=== PATIENT | female | born 1975 | race Hispanic/Latino ===

== ENCOUNTER 2020-09-30 20:12 | Emergency (ER) | payer BC, MEDICAID ==
[~2020-09-30] VITALS: Ht 157.5 cm; Wt 75.0 kg
[~2020-09-30 20:12] MED LIST: AMOXICILLIN500 MG PO; AMRIX15 MG PO; AUGMENTIN875TAB PO; AVIDOXY100 MG PO; BACTRIM1 TAB OR; BENADRYL 50MG C50 MG OR; FIORICET PO; FLEXERIL PO; LORTAB 10-325 M1 TAB PO; LORTAB 5 OR; MEDDOSEPAK OR; MELOXICAM15 MG PO; NAPROSYN500 MG PO; NO HOME MEDS; OMEPRAZOLE20 M2 PO; PROTONIX40 M1 OR; PROTONIX40 MG OR; REGLAN5 MG OR; TOBRAMYCIN0.3 % OD; TRAMADOL HYDROC50 MG PO; ULTRAM50 M1 PO; ZPAK PO
[2020-09-30 20:35] LABS: HEMATOCRIT 44.5 % (37.0-47.0); IMMATURE GRANULOCYTES 0.5 % (0.0-5.0); MEAN CELL VOLUME 82.1 fL CALC (80.0-100.0); MEAN CORPUSCULAR HGB 25.8 pG CALC (26.0-32.0); MEAN CORPUSCULAR HGB CONC 31.5 g/dL CAL (32.0-36.0); NEUT# 8.36 thou/uL (2.00-7.15); RED BLOOD COUNT 5.42 mill/uL (4.20-5.60); RED CELL DISTRI WIDTH 15.9 % (11.5-15.5)
[2020-09-30 20:48] LABS: ALBUMIN 4.4 g/dL (3.2-5.0); ALKALINE PHOSPHATASE 92 u/l (38-126); AMYLASE 61 u/l (30-110); ANION GAP 14 (6-22 (CALC)); BILIRUBIN, TOTAL 0.9 mg/dL (0.0-1.4); BUN 14 mg/dL (7-17); BUN/CREATININE RATIO 25 (12-20 (CALC)); CARBON DIOXIDE 20 mmol/l (22-30); CHLORIDE 108 mmol/l (95-108); CREATININE 0.6 mg/dL (0.5-1.0); GFR > 60 ML/MIN (>=60 (CALC)); GFR FOR AFR.AMER. > 60 ML/MIN (>=60 (CALC)); LIPASE 43 u/l (23-300); POTASSIUM 3.9 mmol/l (3.5-5.1); SGOT/AST 110 u/l (14-36); SODIUM 138 mmol/l (137-146)
[2020-09-30 21:51] LABS: URINE BLOOD DIPSTICK NEGATIVE (NEGATIVE); URINE COLOR YELLOW; URINE GLUCOSE - DIPSTICK NEGATIVE (NEGATIVE); URINE KETONE >=80 mg/dL (NEGATIVE); URINE LEUK ESTERASE NEGATIVE (NEGATIVE); URINE PH 5.5 (4.5-8.0); URINE PROTEIN - DIPSTICK TRACE mg/dL (NEG-TRACE); URINE SPECIFIC GRAVITY >=1.030; URINE UROBILINOGEN - DIPSTICK 0.2 E.U./dL (0.2)
[2020-09-30 22:01] LABS: URINE BILIRUBIN - DIPSTICK SMALL (NEGATIVE); URINE NITRITE - DIPSTICK NEGATIVE (Negative)
[2020-09-30] MEDS ORDERED: LOMOTIL2.5 MG PO (23:10)
[2020-09-30] MEDS ORDERED: PHENERGAN25 MG/TAB PO (23:10)
[2020-09-30 23:21] VITALS: BP 96/64
== END 2020-09-30 23:25 | disposition home or self-care (01) | DRG 392 ==
LOC: ED 20:12
PROVIDERS: Family Medicine
DX: A08.4 Viral intestinal infection, unspecified (principal)

== ENCOUNTER 2020-12-16 08:33 | Inpatient (IN) | payer BC, MEDICAID ==
[~2020-12-16] VITALS: Ht 157.5 cm; Wt 70.0 kg
[~2020-12-16 08:33] MED LIST changes: +LOMOTIL2.5 MG PO; +PHENERGAN25 MG/TAB PO
[2020-12-16 09:55] LABS: HCG SERUM/URINE (NEG/POS) NEGATIVE (NEGATIVE)
[2020-12-16 10:05] LABS: ALBUMIN 3.8 g/dL (3.2-5.0); ALKALINE PHOSPHATASE 79 u/l (38-126); BUN 11 mg/dL (7-17); BUN/CREATININE RATIO 20 (12-20 (CALC)); CHLORIDE 103 mmol/l (95-108); CREATININE 0.5 mg/dL (0.5-1.0); GFR > 60 ML/MIN (>=60 (CALC)); GFR FOR AFR.AMER. > 60 ML/MIN (>=60 (CALC)); POTASSIUM 3.6 mmol/l (3.5-5.1); SGOT/AST 70 u/l (14-36); SODIUM 140 mmol/l (137-146); TOTAL PROTEIN 6.8 g/dL (6.3-8.2)
[2020-12-16] MEDS ORDERED: ZITHROMAX250 MG PO (10:09)
--- NOTE | 2020-12-16 10:11 | NUR ---
Reassessment of patient completed. No distress noted.
[2020-12-16 10:12] LABS: ANION GAP 14 (6-22 (CALC)); BILIRUBIN, TOTAL 0.3 mg/dL (0.0-1.4); CARBON DIOXIDE 27 mmol/l (22-30)
[2020-12-16 10:16] LABS: C-REACTIVE PROTEIN 14.1 mg/dL (0-0.9)
[2020-12-16 10:27] LABS: HEMATOCRIT 38.3 % (37.0-47.0); HEMOGLOBIN 12.1 g/dl (12.0-16.0); MEAN CORPUSCULAR HGB 25.3 pG CALC (26.0-32.0); MEAN CORPUSCULAR HGB CONC 31.6 g/dL CAL (32.0-36.0); NEUT# 1.3 thou/uL (2.00-7.15); RED BLOOD COUNT 4.79 mill/uL (4.20-5.60)
--- NOTE | 2020-12-16 11:53 | NUR ---
Reassessment of patient completed. No distress noted.
--- NOTE | 2020-12-16 13:50 | NUR ---
REPORT CALLED TO NURSE HEREDIA FOR [id number]
[2020-12-16 14:51] VITALS: BP 118/73
--- NOTE | 2020-12-16 16:00 | NUR ---
PT IN BED. PT DENIES PAIN. CALL LIGHT WITHIN REACH.
--- NOTE | 2020-12-16 19:40 | NUR ---
PT RESTING IN BED AWAKE AND WATHCING TV. O2 81% ON 2L O2. INCREASED TO 5L. PLACED ON HI CHRISTINA 8L O2 INCREASED TO 88%. INCREASED O2 TO 10L O2 INCREASED TO 91%. RT NOTIFIED. SHIFT ASSESSMENT COMPLETED AT THIS TIME. IV PATENT X1. CALL LGT IN REACH. WILL CONTINUE TO MONITOR.
[2020-12-16 20:00] VITALS: BP 116/64
--- NOTE | 2020-12-16 21:30 | NUR ---
PT ASSISTED UP TO BSC. O2 CHECKED 84%. RT NOTIFIED. PT ENCOURAGED TO DEEP BREATHE. PRONING DISCUSSED. DR CA NOTIFIED. COUGH MEDICINE AND XANAX ORDERED. PATIENT MEDICATED. WILL CONTINUE TO MONITOR. CALL LGT IN REACH. WILL CO NTINUE TO MONITOR.
--- NOTE | 2020-12-16 23:47 | NUR ---
REPORT RECEIVED FROM MAO PIERCE. PT RESTING WITH EYES CLOSED AND NO SIGNS OF DISTRESS. RESPIRATIONS SHALLOW AND UNLABORED ON 10L OXYGEN VIA HIGH FLOW NC. CALL LIGHT WITHIN REACH.
[2020-12-17] VITALS (7 sets, daily range): BP systolic 94–114; BP diastolic 51–70
--- NOTE | 2020-12-17 05:07 | NUR ---
PT UP TO BSC FOR VOID; VERBALIZED PREFERENCE FOR HELP ONLY FROM FEMALE STAFF. MENSTRUAL SPOTTING NOTED WHEN SHE WIPED. PT VERY WEAK AND SOB WITH EXERTION; REMAINS ON OXYGEN 10L VIA NC. TELE ON. IV SITE APPEARS HEATLHY AND FLUSHES. NO OTHER REQUESTS OR CONCERNS AT THIS TIME. SAFETY MEASURES IN PLACE. CALL LIGHT WITHIN REACH.
[2020-12-17 06:39] LABS: HEMATOCRIT 33.7 % (37.0-47.0); HEMOGLOBIN 10.7 g/dl (12.0-16.0); IMMATURE GRANULOCYTES 0.3 % (0.0-5.0); MEAN CELL VOLUME 81.4 fL CALC (80.0-100.0); MEAN CORPUSCULAR HGB 25.8 pG CALC (26.0-32.0); MEAN CORPUSCULAR HGB CONC 31.8 g/dL CAL (32.0-36.0); NEUT# 2.59 thou/uL (2.00-7.15); RED BLOOD COUNT 4.14 mill/uL (4.20-5.60); RED CELL DISTRI WIDTH 15.5 % (11.5-15.5)
[2020-12-17 06:49] LABS: ALBUMIN 3.3 g/dL (3.2-5.0); ALKALINE PHOSPHATASE 63 u/l (38-126); ANION GAP 11 (6-22 (CALC)); BILIRUBIN, TOTAL 0.2 mg/dL (0.0-1.4); BUN 10 mg/dL (7-17); BUN/CREATININE RATIO 19 (12-20 (CALC)); C-REACTIVE PROTEIN 5.9 mg/dL (0-0.9); CARBON DIOXIDE 27 mmol/l (22-30); CHLORIDE 105 mmol/l (95-108); CREATININE 0.5 mg/dL (0.5-1.0); GFR > 60 ML/MIN (>=60 (CALC)); GFR FOR AFR.AMER. > 60 ML/MIN (>=60 (CALC)); POTASSIUM 3.4 mmol/l (3.5-5.1); SGOT/AST 63 u/l (14-36); SODIUM 139 mmol/l (137-146); TOTAL PROTEIN 5.8 g/dL (6.3-8.2)
--- NOTE | 2020-12-17 07:15 | NUR ---
REPORT RECEIVED FROM MAO FAJARDO
--- NOTE | 2020-12-17 10:00 | NUR ---
PT RESTING IN SEMI FOWLERS POSITION,A&O X3;VS OBTAINED AND ASSESSMENT COMPLETED;PT DENIES ANY CURRENT PAIN OR DISCOMFORTS,PAIN SCALE AND REPORTING EDUCATED;RESPIRATIONS SHALLOW ON O2 @ 10L HF NC,CLEAR/DIMINISHED LUNG SOUNDS NOTED;ABDOMEN SOFT ON PALPATION AND ACTIVE IN ALL 4 QUADRANTS;STRONG PEDAL PULSES;SKIN INTACT;TELE MONITORING IN PLACE;#20G TO LAC FLUSHED AND PATENT,ABX STARTED AT THIS TIME;PT REMAINS IN AIR/CONTACT PRECAUTIONS DUE TO COVID19 DX;PT DENIES ANY ADDITIONAL NEEDS AND IS ENCOURAGED TO CALL FOR ASSISTANCE IF NEEDED;FALL PRECAUTIONS IN PLACE WITH CALL LIGHT IN REACH;WILL CONTINUE TO MONITOR
--- NOTE | 2020-12-17 10:46 | NUR ---
AT BEDSIDE DISCUSSING POC.
--- NOTE | 2020-12-17 12:20 | NUR ---
PT RESTING IN SEMI FOWLERS POSITION;RESPIRATIONS EVEN AND UNLABORED ON O2 @ 10L HF NC, O2 SATS 97% AND OXYGEN TITRATED TO 8L HF NC;PT DENIES ANY CURRENT PAIN OR DISCOMFORTS;TELE MONITORING IN PLACE;IV SITE PATENT TO LAC;PT ENCOURAGED TO CALL FOR ASSISTANCE IF NEEDED;CALL LIGHT IN REACH;WILL CONTINUE TO MONITOR
--- NOTE | 2020-12-17 15:50 | NUR ---
PT RESTING IN SEMI FOWLERS POSITION;RESPIRATIONS EVEN AND UNLABORED ON O2 @ 8L HF NC;PT DENIES ANY CURRENT PAIN OR NEEDS;TELE MONITORING IN PLACE;IV SITE PATENT;PT ENCOURAGED TO CALL FOR ASSISTANCE IF NEEDED;FALL PRECAUTIONS REMAIN IN PLACE WITH CALL LIGHT IN REACH;WILL CONTINUE TO MONITOR
--- NOTE | 2020-12-17 19:05 | NUR ---
REPORT FROM SANDEEP MURDOCK. ASSUMED PT CARE.
--- NOTE | 2020-12-17 23:30 | NUR ---
PT RESTING IN BED. NO APPARENT DISTRESS NOTED. SAT 97% ON 8L/M VIA [employer] NC. PT DENIES ANY PAIN OR SOB AT THIS TIME. CALL LIGHT WITHIN REACH. WILL CONTINUE TO MONITOR.
--- NOTE | 2020-12-17 23:30 | NUR ---
PT RESTING IN BED. NO APPARENT DISTRESS NOTED. SAT 07% PN 8L/M VIA HIGHFLOW NC. PT DENIES ANY PAIN OR SOB AT THIS TIME. CALL LIGHT WITHIN REACH. WILL CONTINUE TO MONITOR.
[2020-12-18] VITALS (15 sets, daily range): BP systolic 93–134; BP diastolic 53–69
--- NOTE | 2020-12-18 03:47 | NUR ---
PT RESTING IN BED. NO APPARENT DISTRESS NOTED. PT REMAINS ON 8L/M VIA HIGHFLOW NC. CALL LIGHT WITHIN REACH. WILL CONTINUE TO MONITOR.
[2020-12-18 05:42] LABS: ALBUMIN 3.1 g/dL (3.2-5.0); ALKALINE PHOSPHATASE 57 u/l (38-126); ANION GAP 12 (6-22 (CALC)); BILIRUBIN, TOTAL 0.2 mg/dL (0.0-1.4); BUN 13 mg/dL (7-17); BUN/CREATININE RATIO 25 (12-20 (CALC)); CARBON DIOXIDE 28 mmol/l (22-30); CHLORIDE 106 mmol/l (95-108); CREATININE 0.5 mg/dL (0.5-1.0); GFR > 60 ML/MIN (>=60 (CALC)); GFR FOR AFR.AMER. > 60 ML/MIN (>=60 (CALC)); POTASSIUM 3.7 mmol/l (3.5-5.1); SGOT/AST 49 u/l (14-36); SODIUM 141 mmol/l (137-146); TOTAL PROTEIN 5.7 g/dL (6.3-8.2)
[2020-12-18 05:46] LABS: HEMATOCRIT 32.9 % (37.0-47.0); HEMOGLOBIN 10.4 g/dl (12.0-16.0); IMMATURE GRANULOCYTES 0.8 % (0.0-5.0); MEAN CELL VOLUME 81.2 fL CALC (80.0-100.0); MEAN CORPUSCULAR HGB 25.7 pG CALC (26.0-32.0); MEAN CORPUSCULAR HGB CONC 31.6 g/dL CAL (32.0-36.0); NEUT# 1.76 thou/uL (2.00-7.15); RED BLOOD COUNT 4.05 mill/uL (4.20-5.60); RED CELL DISTRI WIDTH 15.8 % (11.5-15.5)
--- NOTE | 2020-12-18 07:10 | NUR ---
REPORT RECEIVED FROM MATHIEU PARK
--- NOTE | 2020-12-18 09:00 | NUR ---
PT RESTING IN SEMI FOWLERS POSITION,A&O X3;VS OBTAINED AND ASSESSMENT COMPLETED;PT DENIES ANY CURRENT PAIN OR DISCOMFORTS BUT DOES REPORT ANXIETY,PAIN SCALE AND REPORTING EDUCATED;PT TO BE MEDICATED WITH PRN XANAX 0.5MG PO PER REQUEST;RESPIRATIONS SHALLOW ON O2 @ 8L HF NC STATING 82-85%, OXYGEN TITRATED UP TO 15L HF NC AND O2 SATS KRISTEN TO 90%;CLEAR/DIMINISHED LUNG SOUNDS AND NON-PRODUCTIVE COUGH;ENCOURAGED PURSED LIP BREATHING TECHNQIUE;I.S. PROVIDED AND PT EDUCATED ON USE,ENCOURAGED USE 10X PER HOUR;PT ALSO INSTUCTED TO LAY PRONE AND VERBALIZES UNDERSTANDING;ABDOMEN SOFT ON PALPATION AND ACTIVE IN ALL 4 QUADRANTS;STRONG PEDAL PULSES;SKIN INTACT;TELE MONITORING IN PLACE;#20G TO LAC FLUSHED AND PATENT,ABX STARTED AT THIS TIME;PT DENIES ANY ADDITIONAL NEEDS AND IS ENCOURAGED TO CALL FOR ASSISTANCE IF NEEDED;PT REMAINS IN AIR/CONTACT PRECAUTION DUE TO COVID19 DX;CALL LIGHT IN REACH;WILL CONTINUE TO MONITOR
--- NOTE | 2020-12-18 09:05 | NUR ---
CHARLI,ANRP NOTIFIED OF INCREASE IN OXYGEN DEMAND, NO NEW ORDERS RECEIVED AT THIS TIME.
--- NOTE | 2020-12-18 10:42 | NUR ---
PT TO BE TRANSFERRED TO ICU BED 2.REPORT GIVEN TO MAO FAJARDO AT THIS TIME.
--- NOTE | 2020-12-18 10:52 | NUR ---
PT TRANSPORTED TO ICU BED 2 VIA HOSPITAL BED ACCOMPANIED BY TAIYA PAGAN AND BOB ON O2 @ 15L NC;TRANSPORT OCCURED WITHOUT INCIDENT.CARE RELINQUISHED TO MAO FAJARDO.
--- NOTE | 2020-12-18 10:53 | NUR ---
PT ARRIVED TO ICU ROOM 2 VIA BED WITH [facility] STAFF. BEDSIDE REPORT RECEIVED FROM MATHIEU HOPKINS. PT CONNECTED TO ALL ATTACHMENTS; VSS; NSR ON ASSET PROTECTION ASSISTANT. POSITIONED PRONE AT THIS TIME. RESPIRATIONS EVEN AND SLIGHTLY LABORED ON OXYGEN 15L VIA HUMIDIFIED HIGH FLOW NASAL CANNULA; PT REPORTS THAT SHE DOES NOT FEEL SHORT OF BREATH AT THIS TIME. C/O RIGHT LOWER BACK PAIN. PLACED ON AIRBORNE/ISOLATION PRECAUTIONS FOR POSITIVE COVID. ORIENTED TO NEW ROOM AND CALL LIGHT SYSTEM. POC REVIEWED INCLUDING CONTINUOUS OXYGEN SATURATION MONITORING; PT ENCOURAGED TO VERBALIZE CONCERNS; STATES UNDERSTANDING AND HAS NO QUESTIONS AT THIS TIME. SAFETY MEASURES IN PLACE. CALL LIGHT WITHIN REACH.
--- NOTE | 2020-12-18 11:35 | NUR ---
RADIOLOGY AT BEDSIDE FOR CHEST XRAY. PT ASSISTED TO BSC FOR VOID WITH ONE PERSON ASSIST DUE TO WEAKNESS AND ATTACHMENTS. SPO2 DECREASED TO 88% DURING EXERTION; NOW 96% WHILE SITTING UP ON EDGE OF BED.
--- NOTE | 2020-12-18 13:56 | NUR ---
OXYGEN TITRATED DOWN FROM 15 TO 12L; PT TOLERATING WELL SPO2 93-94% WHILE RESTING. UP TO BSC AND SPO2 DECREASED TO 87%.
--- NOTE | 2020-12-18 16:11 | NUR ---
REMDESIVIR COMPLETED. PT RESTING WITH EYES CLOSED ON RIGHT SIDE WITH NO SIGNS OF DISTRESS. RESPIRATIONS EVEN AND UNLABORED; SPO2 96%. CALL LIGHT WITHIN REACH.
--- NOTE | 2020-12-18 19:00 | NUR ---
ASSESSMENT DONE O2 12L/MIN VIA HFNC SAT 93% ASSISTED TO BSC VOIDED 200CC BRONSON URINE SAT DROPPED TO88% BACK TO BED SAT KRISTEN TO 93% EDUCATION REGUARDING PRONE POSITION IN BED
--- NOTE | 2020-12-18 22:04 | NUR ---
PT WITH COUGH PRODUCTIVE THIN YELLOW SECRETIONS NO OTHER CHANGES NOTED
--- NOTE | 2020-12-18 22:45 | NUR ---
PT TALKING ON THE PHONE SAT 85-87% EDUCATION REGUARDING NOT EXERTING SELF AND TO LIE PRONE IN THE BED
--- NOTE | 2020-12-18 23:58 | NUR ---
ON RT SIDE O2 IN USE ROUSES EASILY
[2020-12-19] VITALS (21 sets, daily range): BP systolic 98–121; BP diastolic 58–70
--- NOTE | 2020-12-19 02:28 | NUR ---
XANAX 0.5MG PO GIVEN PER PT REQUEST AFTER UP TO BSC VOIDED 200CC O1 SAT DROPPED TO85% WHEN UP RECOVERED TO 90% QUICKLY
--- NOTE | 2020-12-19 03:54 | NUR ---
ON RT SIDE EYES CLOSED
[2020-12-19 06:04] LABS: ALKALINE PHOSPHATASE 55 u/l (38-126); ANION GAP 11 (6-22 (CALC)); BUN 13 mg/dL (7-17); BUN/CREATININE RATIO 26 (12-20 (CALC)); CARBON DIOXIDE 28 mmol/l (22-30); CHLORIDE 107 mmol/l (95-108); CREATININE 0.5 mg/dL (0.5-1.0); GFR > 60 ML/MIN (>=60 (CALC)); GFR FOR AFR.AMER. > 60 ML/MIN (>=60 (CALC)); POTASSIUM 3.7 mmol/l (3.5-5.1); SGOT/AST 47 u/l (14-36); SODIUM 142 mmol/l (137-146); TOTAL PROTEIN 5.5 g/dL (6.3-8.2)
[2020-12-19 06:05] LABS: HEMOGLOBIN 10.6 g/dl (12.0-16.0); IMMATURE GRANULOCYTES 1.2 % (0.0-5.0); MEAN CELL VOLUME 81.5 fL CALC (80.0-100.0); MEAN CORPUSCULAR HGB 26.2 pG CALC (26.0-32.0); MEAN CORPUSCULAR HGB CONC 32.1 g/dL CAL (32.0-36.0); NEUT# 2.7 thou/uL (2.00-7.15); RED BLOOD COUNT 4.05 mill/uL (4.20-5.60); RED CELL DISTRI WIDTH 15.5 % (11.5-15.5)
[2020-12-19 06:09] LABS: BILIRUBIN, TOTAL 0.3 mg/dL (0.0-1.4)
--- NOTE | 2020-12-19 09:41 | NUR ---
PT IS AWAKE, ALERT, ORIENTED X 3. LUNGS CLEAR BUT DIMINISHED, USES 12 LPM NC. PT IS ANXIOUS, FEELS SHORT OF BREATH WITH MINIMAL EXERTION. PT SATS DOWN TO LOW 80s WITH ACTIVITY, ABLE TO REGAIN NUMBERS WITH TIME.
--- NOTE | 2020-12-19 13:02 | NUR ---
PT WITH ASSIST TO BSC, RECOVERS IN TIME. FAMILY CONCERNED THAT SHE IS NOT ANSWERING TEXTS, SHE SAYS THAT SHE DOES NOT FEEL LIKE IT NOW.
--- NOTE | 2020-12-19 14:46 | NUR ---
PT IS NOW OOB IN CHAIR AT BEDSIDE, TOLERATED TRANSFER WELL. PT WITH WASHCLOTH AND BASIN AT BEDSIDE, ATTEMPTS TO WASH HERSELF. SATS REMAIN UPPER 80s TO LOW 90s.
--- NOTE | 2020-12-19 19:30 | NUR ---
awake. sitting in bedside chair. sob with exertion. o2 cont per nc. monitoring coordinator shows sinus rhythm hr 88. #20 lac saline lock. po fluids taken. voids per bsc. fall & air/contact precautions cont. incentive spirometry encouraged.
--- NOTE | 2020-12-19 20:30 | NUR ---
assisted to bed.
--- NOTE | 2020-12-19 22:00 | NUR ---
eyes closed. no distress. air sampling and monitoring shows sinus rhythm hr 90.
[2020-12-20] VITALS (21 sets, daily range): BP systolic 95–133; BP diastolic 55–79
--- NOTE | 2020-12-20 00:01 | NUR ---
eyes closed. no distress. o2 cont.
--- NOTE | 2020-12-20 01:00 | NUR ---
up to bsc, sob with activity then back to bed. xanax 0.5mg po given per request for sleep.
--- NOTE | 2020-12-20 04:00 | NUR ---
resting quietly. no distress. awake overnight monitor shows sinus rhythm hr 80.
--- NOTE | 2020-12-20 06:00 | NUR ---
monitor tech shows sinus rhythm hr 86. o2 cont.
[2020-12-20 06:36] LABS: HEMATOCRIT 33.8 % (37.0-47.0); HEMOGLOBIN 10.7 g/dl (12.0-16.0); IMMATURE GRANULOCYTES 2.6 % (0.0-5.0); MEAN CELL VOLUME 81.6 fL CALC (80.0-100.0); MEAN CORPUSCULAR HGB 25.8 pG CALC (26.0-32.0); MEAN CORPUSCULAR HGB CONC 31.7 g/dL CAL (32.0-36.0); NEUT# 3.31 thou/uL (2.00-7.15); RED BLOOD COUNT 4.14 mill/uL (4.20-5.60); RED CELL DISTRI WIDTH 15.4 % (11.5-15.5)
[2020-12-20 06:59] LABS: ANION GAP 8 (6-22 (CALC)); BUN 14 mg/dL (7-17); BUN/CREATININE RATIO 27 (12-20 (CALC)); C-REACTIVE PROTEIN 4.1 mg/dL (0-0.9); CARBON DIOXIDE 30 mmol/l (22-30); CHLORIDE 107 mmol/l (95-108); CREATININE 0.5 mg/dL (0.5-1.0); GFR > 60 ML/MIN (>=60 (CALC)); GFR FOR AFR.AMER. > 60 ML/MIN (>=60 (CALC)); POTASSIUM 3.4 mmol/l (3.5-5.1); SODIUM 142 mmol/l (137-146)
--- NOTE | 2020-12-20 07:01 | NUR ---
PT WAS ON 10L SAT 89% INCREASED TO 12L SAT 91%.
--- NOTE | 2020-12-20 09:45 | NUR ---
PT SEEN AWAKE, ALERT, ORIENTED X 3. LUNGS CLEAR, SLIGHTLY DECREASED, USING 12 LPM NC. PT SEEN BY DR ULRICH TODAY, ENCOURAGED OOB TO CHAIR, WHICH PT HAS DONE. ANXIOUS, XANAX PROVIDED. PT TO BSC AND BACK WITH MINIMAL ASSIST.
--- NOTE | 2020-12-20 11:14 | NUR ---
PT IS ON 12L SAT 94% LAYING IN BED.
--- NOTE | 2020-12-20 13:21 | NUR ---
PT STATES THAT SHE FEELS TIRED, HAS RETURNED TO BED FROM THE CHAIR BEFORE LUNCH AND REMAINED THERE.
--- NOTE | 2020-12-20 19:30 | NUR ---
awakens easily. remains weak & "tired." o2 cont 30 l/m 80% vapotherm. hob approx 30 degrees. instructed pt about flat hob & prone position. pt declined @ present. personnel monitor shows sinus rhythm hr 82. #20 lac saline lock. po fluids taken poor. voids per bsc. fall & air/contact precautions cont.
--- NOTE | 2020-12-20 21:45 | NUR ---
xanax .5mg po given for sleep. hob lowered to flat position & pt is laying on her rt side. declines to lay in prone position.
[2020-12-21] VITALS (19 sets, daily range): BP systolic 89–181; BP diastolic 53–90
--- NOTE | 2020-12-21 00:01 | NUR ---
eyes closed. no distress. tobacco checkout clerk shows sinus stan hr 58.
--- NOTE | 2020-12-21 02:00 | NUR ---
resting quietly. resps even & unlabored. no apparent distress.
--- NOTE | 2020-12-21 05:00 | NUR ---
lab here. blood drawn.
[2020-12-21 06:10] LABS: HEMATOCRIT 33.6 % (37.0-47.0); HEMOGLOBIN 10.5 g/dl (12.0-16.0); IMMATURE GRANULOCYTES 2.9 % (0.0-5.0); MEAN CELL VOLUME 81.8 fL CALC (80.0-100.0); MEAN CORPUSCULAR HGB 25.5 pG CALC (26.0-32.0); MEAN CORPUSCULAR HGB CONC 31.3 g/dL CAL (32.0-36.0); NEUT# 4.44 thou/uL (2.00-7.15); RED BLOOD COUNT 4.11 mill/uL (4.20-5.60); RED CELL DISTRI WIDTH 15.4 % (11.5-15.5)
[2020-12-21 06:39] LABS: ANION GAP 10 (6-22 (CALC)); BUN 13 mg/dL (7-17); BUN/CREATININE RATIO 25 (12-20 (CALC)); CARBON DIOXIDE 29 mmol/l (22-30); CHLORIDE 106 mmol/l (95-108); CREATININE 0.5 mg/dL (0.5-1.0); GFR > 60 ML/MIN (>=60 (CALC)); GFR FOR AFR.AMER. > 60 ML/MIN (>=60 (CALC)); POTASSIUM 3.7 mmol/l (3.5-5.1); SODIUM 142 mmol/l (137-146)
[2020-12-21 08:18] LABS: SGOT/AST 31 u/l (14-36)
--- NOTE | 2020-12-21 09:00 | NUR ---
PT SEEN RESTING IN THE BED WITH VAPOTHERM IN PLACE, APPEARS ANXIOUS. PT COMPLAINS OF PAIN IN LUNGS. TYLENOL PROVIDED FOR THIS PAIN AND TEMP 99.4 WITH PT COLD. PT ASSISTED TO BSC AND THEN TO CHAIR.
--- NOTE | 2020-12-21 12:21 | NUR ---
PT HAS BEEN OOB IN CHAIR, VAPOTHERM CONTINUES. PT APPEARS DESPONDENT. FAMILY UPDATED.
--- NOTE | 2020-12-21 15:53 | NUR ---
PT CONTINUES OOB IN CHAIR, SATS IN THE UPPER 90s ON VAPOTHERM. PT IN NO DISTRESS.
--- NOTE | 2020-12-21 18:11 | NUR ---
PT HAS BEEN UP IN CHAIR FOR THE AFTERNOON, NO COMPLAINTS OR EVIDENCE OF DISTRESS.
--- NOTE | 2020-12-21 19:00 | NUR ---
REPORT RECEIVED FROM Maty PAREDES RN, CARE OF PT ASSUMED AT THIS TIME. PT CARE ASSIGNED TO Oneil IVY CNA.
--- NOTE | 2020-12-21 20:05 | NUR ---
PT SITTING UP IN RECLINER. AWAKE. A/0X3. AFFECT IS FLAT. RESPIRATIONS SHALLOW. HARSH COUGH PRESENT. LUNGS CLEAR AND DIMINISHED. VAPOTHERM ON @ 30L/MIN 80% HUMIDITY 34 DEGREES. SP02 92-93%. SCHEDULED AND REQUESTED PRN MEDICATIONS ADMINISTERED, SEE E-MAR. PLAN OF CARE REVIEWED. PT VERBALIZES UNDERSTANDING AND AGREES. DENIES FURTHER NEEDS AT THIS TIME. CALL VOGT WITHIN REACH, AGREES TO CALL PRN. RECLINER LOCKED. COVID-19 ISOLATION MAINTAINED.
[2020-12-22] VITALS (22 sets, daily range): BP systolic 92–113; BP diastolic 50–67
--- NOTE | 2020-12-22 04:05 | NUR ---
PT ASSISTED UP TO BSC AND BACK TO RECLINER. 300ML CONCENTRATED BRONSON URINE EMPTIED. PT SPO2 DECREASES TO 70'S WITH ACTIVITY. UP TO 89% WHEN BACK IN RECLINER AT REST.
[2020-12-22 06:31] LABS: ANION GAP 9 (6-22 (CALC)); BUN 15 mg/dL (7-17); BUN/CREATININE RATIO 33 (12-20 (CALC)); C-REACTIVE PROTEIN 7.8 mg/dL (0-0.9); CARBON DIOXIDE 28 mmol/l (22-30); CHLORIDE 104 mmol/l (95-108); CREATININE 0.5 mg/dL (0.5-1.0); GFR > 60 ML/MIN (>=60 (CALC)); GFR FOR AFR.AMER. > 60 ML/MIN (>=60 (CALC)); POTASSIUM 3.8 mmol/l (3.5-5.1); SODIUM 138 mmol/l (137-146)
[2020-12-22 06:36] LABS: HEMOGLOBIN 10.5 g/dl (12.0-16.0); IMMATURE GRANULOCYTES 3.6 % (0.0-5.0); MEAN CELL VOLUME 81.5 fL CALC (80.0-100.0); MEAN CORPUSCULAR HGB 25.9 pG CALC (26.0-32.0); MEAN CORPUSCULAR HGB CONC 31.8 g/dL CAL (32.0-36.0); NEUT# 5.05 thou/uL (2.00-7.15); RED BLOOD COUNT 4.05 mill/uL (4.20-5.60); RED CELL DISTRI WIDTH 15.6 % (11.5-15.5)
--- NOTE | 2020-12-22 06:36 | NUR ---
PT RECIEVED ON ALL DOCUMENTED PARAMTERS. NO ACUTE DISTRESS NOTED AT THIS TIME. ENTRY LEVEL SOFTWARE DEVELOPER TO MONITOR.
--- NOTE | 2020-12-22 09:27 | NUR ---
titrated parameters as per pt spo2. pt deshawn well at this time. foley artist to monitor.
--- NOTE | 2020-12-22 11:57 | NUR ---
PT UP IN CHAIR LAST NIGHT, SATS WELL ON VAPOTHERM. PT WITH ANXIETY. FAMILY X 2 UPDATED BY PHONE. PT BACK TO BED NOW. IV CHANGED OUT.
--- NOTE | 2020-12-22 12:21 | NUR ---
WEANED PARAMTERS BABITA. CT SCAN SPECIAL PROCEDURES TECHNOLOGIST TO MONITOR.
--- NOTE | 2020-12-22 13:32 | NUR ---
PT WEANED TO , TOLERATING WELL. SHE CONTINUES TO REST IN THE BED IN NO DISTRESS.
--- NOTE | 2020-12-22 16:13 | NUR ---
PT RESTS IN THE BED ON HER RIGHT SIDE, VAPOTHERM AT 22/70, PT SATS 91%.
--- NOTE | 2020-12-22 17:44 | NUR ---
PT EATING DINNER, NAD. VSS.
--- NOTE | 2020-12-22 18:05 | NUR ---
PT DOWN TO 22 LPM VAPOTHERM. SHE IS SITTING UP AT BEDSIDE EATING HER MEAL. DAUGHTER FRANKIE CANNON.
--- NOTE | 2020-12-22 19:34 | NUR ---
REPORT RECIVED FROM MAO TAN. ASSUMED CARE OF PT, AT THIS TIME PT INDICATES SHE IS FEELING BETTER THIS EVENING. SAFETY PRECAUTIONS IN PLACE. BREATHING IS EVEN AND UNLABORED. WILL MONITOR
--- NOTE | 2020-12-22 20:00 | NUR ---
PT RESTING QUIETLY VAPOTHERM CONTINUES, 22L 70% PT TOLERATING WELL. PTS OXYGEN SATURATION DOES DECREASE INTO THE 80'S WITH ANY EXCERTION. ONCE PT IS BACK IN BED O2 SATS INCREASE INTO THE 90'S. ASSESSMENTS COMPLETED, PLEASE SEE DOCUMENTATION. PT BREATHING IS SLIGHTLY SHALLOW, SCATTERED WHEEZING THROUGHOUT LUNG CLAIRE. XANAX GIVEN TO DECREASE PT ANXIETY. SAFETY PRECAUTIONS IN PLACE, WILL MONITOR
--- NOTE | 2020-12-22 22:33 | NUR ---
PT REMAINS IN BED RESTING QUIETLY. ABLE TO MAKE NEEDS KNOWN. NO SOB OR LABORED BREATHING NOTED AT THIS TIME. PT REQUIES ASSIST X 1 FOR TOILETING D/T WEAKNESS. SAFETY PRECAUTIONS IN PLACE. WILL MONITOR
[2020-12-23] VITALS (13 sets, daily range): BP systolic 89–124; BP diastolic 45–67
--- NOTE | 2020-12-23 00:33 | NUR ---
PT CONTINUES TO REST COMFORTABLY IN BED, NO COMPLAINTS VOICED. PT CONTINUES ON VAPOTHERM 22L @ 70%. BREATHING EVEN AND UNLABORED. SAFETY PRECAUTIONS REMAIN IN PLACE. WILL MONITOR
--- NOTE | 2020-12-23 02:00 | NUR ---
PT CONTINUES TO REST QUIETLY. BREATHING IS EVEN AND UNLABORED. NO COMPLAINTS VOICED AT THIS TIME. PT IS ABLE TO MAKE HER NEEDS KNOWN. VSS. SAFETY PRECAUTIONS IN PLACE. WILL MONITOR
--- NOTE | 2020-12-23 04:00 | NUR ---
PT RESTING IN BED, WAS UP TO BSC A FEW MINUTES AGO WITH RESEARCH PROJECT COORDINATOR ASSISTANCE. WEAKNESS CONTINUES, BUT PT IS ABLE TO MOVE ABOUT WITH ASSISTANCE WITHOUT HER O2 SATURATIONS DECREASING. VAPOTHERM REMAINS ON 22L 70%. WILL MONITOR
[2020-12-23 05:57] LABS: HEMATOCRIT 32.6 % (37.0-47.0); HEMOGLOBIN 10.4 g/dl (12.0-16.0); IMMATURE GRANULOCYTES 4.6 % (0.0-5.0); MEAN CELL VOLUME 80.9 fL CALC (80.0-100.0); MEAN CORPUSCULAR HGB 25.8 pG CALC (26.0-32.0); MEAN CORPUSCULAR HGB CONC 31.9 g/dL CAL (32.0-36.0); NEUT# 4.82 thou/uL (2.00-7.15); RED BLOOD COUNT 4.03 mill/uL (4.20-5.60); RED CELL DISTRI WIDTH 15.3 % (11.5-15.5)
--- NOTE | 2020-12-23 06:00 | NUR ---
PT DOING WELL AT THIS TIME. BREATHING EVEN AND UNLABORED. NO COMPLAINTS VOICED. PT TRANSFERS TO BSC WITH 1 ASSIST. NO S/S OF DISTRESS NOTED. VAPOTHERM CONTINUES 22L 70%. TOLERATING WELL. WILL MONITOR
[2020-12-23 06:15] LABS: ALBUMIN 2.7 g/dL (3.2-5.0); ALKALINE PHOSPHATASE 48 u/l (38-126); ANION GAP 10 (6-22 (CALC)); BILIRUBIN, TOTAL 0.4 mg/dL (0.0-1.4); BUN 15 mg/dL (7-17); BUN/CREATININE RATIO 32 (12-20 (CALC)); CARBON DIOXIDE 27 mmol/l (22-30); CHLORIDE 105 mmol/l (95-108); CREATININE 0.5 mg/dL (0.5-1.0); GFR > 60 ML/MIN (>=60 (CALC)); GFR FOR AFR.AMER. > 60 ML/MIN (>=60 (CALC)); POTASSIUM 3.7 mmol/l (3.5-5.1); SGOT/AST 33 u/l (14-36); SODIUM 139 mmol/l (137-146); TOTAL PROTEIN 5.3 g/dL (6.3-8.2)
--- NOTE | 2020-12-23 07:14 | NUR ---
pt resting comfortably at this time. nad. vss. linen keeper to monitor. no changes at this time.
--- NOTE | 2020-12-23 09:33 | NUR ---
weaned as [per pt spo2. deshawn wll at this time. riding teacher to monitor.
--- NOTE | 2020-12-23 09:43 | NUR ---
PATIENT'S DAUGHTER CALLED, REQUESTED AN UPDATE. CODE GIVEN, UPDATE GIVEN. DAUGHTER STATED SHE WILL CALL LATER, INFROMED HER ITS FINE IM HERE TILL 7PM.
--- NOTE | 2020-12-23 09:45 | NUR ---
CALLED PT FOR THEM TO COME IN TODAY AND WORK WITH PATIENT. CONSULT IS IN.
--- NOTE | 2020-12-23 10:00 | NUR ---
PATIENT IS VENTED, RESTING COMFORTABLE IN BED. SAFETY MEASURES IN PLACE. WILL CONTINUE TO MONITOR.
--- NOTE | 2020-12-23 10:21 | NUR ---
PATIENT IS A/O X3, ABLE TO MAKE NEEDS KNOWN TO STAFF. STATED SHE HAS A HEADACHE, NAUSEA. MEDICATIONS GIVEN. 3MM PERRLA BILAT EYES. STATES SHE IS VERY TIRED TODAY. GOT HER UP TO THE CHAIR. CLEAR TO DIMINISHED LUNG SOUNDS. ACTIVE BOWEL SOUNDS. SOFT NON DISTENDED BOWEL SOUNDS. NO EDEMA PRESENT. STRONG AND EQUAL HAND REED REPAIRER. STRONG PULSES. RT DECREASING O2 LITERS TOLERATED. SAFETY MEASURES IN PLACE. CALL LIGHT IN PLACE, WILL CONTINUE TO MONITOR. FRESH ICE WATER GIVEN. CLEAN SHEETS ON HER BED. PATIENT STATED SHE WILL TRY AND WASH UP LATER TODAY, JUST FEELS TOO WEAK.
--- NOTE | 2020-12-23 10:54 | NUR ---
weaned as per pt spo2, pt deshawn well at this time. tapping machine operator to monitor.
--- NOTE | 2020-12-23 12:00 | NUR ---
PATIENT IS SITTING UP IN THE CHAIR, LUNCH TRAY ON HER BEDSIDE TABLE.
--- NOTE | 2020-12-23 14:00 | NUR ---
PATIENT UP IN CHAIR WATCHING TV
--- NOTE | 2020-12-23 16:00 | NUR ---
PATIENT IS UP IN CHAIR WATCHING TV VOICES NO NEEDS.
--- NOTE | 2020-12-23 16:44 | NUR ---
WEANED TO 6LPM HFNC. BABITA WELL AT THIS TIME. FILER METAL PATTERNS TO MONITOR.
--- NOTE | 2020-12-23 17:45 | NUR ---
PATIENT HAS PT WITH HER.
--- NOTE | 2020-12-23 17:48 | NUR ---
PATIENT REPORT WAS GIVEN OFF TO [facility] NURSE KRISTEL.
--- NOTE | 2020-12-23 18:30 | NUR ---
PATIENT HAS LEFT THE FLOOR, GOING TO [facility] ROOM 284. PATIENT IS STABLE, USING OXYGEN AND HAS A MASK ON.
--- NOTE | 2020-12-23 18:30 | NUR ---
PATIENT TRANSFERRED FROM ICU 2 TO ROOM 284 AT THIS TIME--CONDITION STABLE UPON REACHING ROOM--PATIENT IS ALERT, VERBAL, ABLE TO MAKE NEEDS KNOWN. TOLERATES MEDS WELL WHOLE. CONT OF BOWEL AND BLADDER--ABLE TO TRANSFER SELF WITH STANDBY ASSIST TO AND FROM [facility]--UNSTEADY GAIT. DENIES PAIN. TELEMETRY TO BE MONITORED. LAST BM TODAY. PT EVAL IN PLACE. 20 GAUGE INTACT TO RAC AREQ--FLUSHES WELL--SITE UNREMARKABLE--SALINE LOCKED. RECEIVING IV ABT THERAPY RELATED TO COVID PNEUMONIA. O2 @ 6L/MIN [facility]--HIGH FLOW. ORIENTED TO ROOM--C/L WITHIN REACH.
--- NOTE | 2020-12-23 20:00 | NUR ---
PT SITTING UP IN BEDSIDE CHAIR WATCHING TV; NO SIGNS OF DISTRESS. RESPIRATIONS EVEN AND UNLABORED ON OXYGEN 6L VIA NC. DENIES PAIN. SAFETY MEASURES IN PLACE. CALL LIGHT WITHIN REACH.
--- NOTE | 2020-12-24 01:51 | NUR ---
PT LAYING IN BED WITH EYES CLOSED, APPEARS TO BE SLEEPING, APPEARS COMFORTABLE AND IN NO DISTRESS. RESPIRATIONS REGULAR AND UNLABOREDON 6 LITERS OF O2 VIA NC. ITEMS REMAIN WITHIN REACH, CALL VOGT REMAINS WITHIN REACH. BED REMAINS LOCKED AND IN LOW POSITION WITH BEDRAILS UP X2. WILL CONTINUE TO MONITOR.
--- NOTE | 2020-12-24 04:00 | NUR ---
PT RESTING, NO SIGNS OF DISTRESS NOTED, RESP EVEN AND UNLABORED. PT VOICES NO NEEDS OR COMPLAINTS AT THIS TIME. CALL LIGHT IN REACH, WILL CONTINUE TO MONITOR.
[2020-12-24 04:25] VITALS: BP 117/71
[2020-12-24 06:12] LABS: HEMATOCRIT 32.3 % (37.0-47.0); HEMOGLOBIN 10.1 g/dl (12.0-16.0); IMMATURE GRANULOCYTES 2.4 % (0.0-5.0); MEAN CELL VOLUME 81.8 fL CALC (80.0-100.0); MEAN CORPUSCULAR HGB 25.6 pG CALC (26.0-32.0); MEAN CORPUSCULAR HGB CONC 31.3 g/dL CAL (32.0-36.0); NEUT# 6.55 thou/uL (2.00-7.15); RED BLOOD COUNT 3.95 mill/uL (4.20-5.60); RED CELL DISTRI WIDTH 15.8 % (11.5-15.5)
[2020-12-24 06:28] LABS: ANION GAP 9 (6-22 (CALC)); BUN 16 mg/dL (7-17); BUN/CREATININE RATIO 38 (12-20 (CALC)); C-REACTIVE PROTEIN 5.8 mg/dL (0-0.9); CARBON DIOXIDE 27 mmol/l (22-30); CHLORIDE 106 mmol/l (95-108); CREATININE 0.4 mg/dL (0.5-1.0); GFR > 60 ML/MIN (>=60 (CALC)); GFR FOR AFR.AMER. > 60 ML/MIN (>=60 (CALC)); POTASSIUM 3.8 mmol/l (3.5-5.1); SODIUM 138 mmol/l (137-146)
[2020-12-24 08:15] VITALS: BP 100/51
--- NOTE | 2020-12-24 08:15 | NUR ---
PT IN BED UPON ENTERING ROOM. VITALS AND ASSESSMENT DONE. S1 AND S2 HEARD UPON ASCULTATION. LUNGS CLEAR UPON ACULTATION. BOWELS ACTIVE IN ALL 4 QUADRANTS. SKIN WARM AND DRY. PT ON 6L OF O2. COVID +. PT IS ALERT AND ORIENTED. IV PATENT AND HEALTHY. PEDAL PULSES STRONG.
--- NOTE | 2020-12-24 09:41 | NUR ---
WAITING ON PTS ZITHROMAX.
[2020-12-24 11:33] VITALS: BP 92/52
--- NOTE | 2020-12-24 12:00 | NUR ---
PT HAS A LITTLE ANXIETY. MEDICATION GIVEN TO HER. NO OTHER DISTRESS NOTED. CALL LIGHT WITHIN REACH
--- NOTE | 2020-12-24 14:38 | NUR ---
Patient did seated B LE exercises: knee extension, hamstring curls, hip flexion, gluteal squeezes, ankle pumps, hip abduction, and hip adduction for 10 reps x 2 sets with no SOB, took 1-2 rest periods in between exercise routine. Chadwick also did bed to recliner and bed to commode transfers with min a x 1 (2 reps) with patient acting a little sluggish, but was able to finish task with no SOB.
--- NOTE | 2020-12-24 16:05 | NUR ---
PT IN BED SLEEP. NO DISTRESS NOTED. CALL LIGHT WITHIN REACH.
[2020-12-24 16:15] VITALS: BP 101/58
[2020-12-24 19:00] VITALS: BP 97/54
[2020-12-24 20:00] VITALS: BP 112/76
--- NOTE | 2020-12-24 20:00 | NUR ---
PATIENT RESTING COMFORTABLY. NO COMPLAINTS OR CONCERNS AT THIS TIME
[2020-12-25 00:36] VITALS: BP 92/60
--- NOTE | 2020-12-25 03:03 | NUR ---
PATIENT ASLEEP. NO CHANGE IN STATUS
[2020-12-25 04:32] VITALS: BP 93/58
[2020-12-25 09:05] VITALS: BP 87/52
--- NOTE | 2020-12-25 09:05 | NUR ---
PT SITTING IN CHAIR. A&O X4. C/O OF ANXIETY. PRN MEDICATION GIVEN. PALE APPEARANCE. PT C/O OF DIZZINESS AND LIGHTHEADED. BP UPON EVAL 87/52. PT ASSISTED BACK INTO BED. DR DELEON NOTIFIED. ORDER OBTAINED FOR 1L NS BOLUS. PT PLACED IN [place]. PT EDUCATED ON THE NEED FOR THESE INTERVENTIONS. IV HEALTHY AND PATENT; #20G TO RAC. NEW IV INITIATED; #20 LW, HEALTHY AND PATENT. CLEAR/DIMINISHED BREATH SOUNDS UPON AUSCULTATION. MALT ROASTER IN PLACE. O2 HF NC @6L TITRATED UP TO 7L. ACTIVE BOWEL SOUNDS X4 QUADRANTS. BM REPORTED PRIOR TO HYPOTENSION. UPDATED. ASSESSMENT COMPLETED. DISCUSSED POC. CALL LIGHT WITHIN REACH.
[2020-12-25 10:26] LABS: HEMATOCRIT 30.6 % (37.0-47.0); HEMOGLOBIN 9.9 g/dl (12.0-16.0); IMMATURE GRANULOCYTES 1.6 % (0.0-5.0); MEAN CORPUSCULAR HGB 26.2 pG CALC (26.0-32.0); MEAN CORPUSCULAR HGB CONC 32.4 g/dL CAL (32.0-36.0); NEUT# 7.33 thou/uL (2.00-7.15); RED BLOOD COUNT 3.78 mill/uL (4.20-5.60)
--- NOTE | 2020-12-25 10:33 | NUR ---
BP IMPROVING 100/55. PT REPORTS IMPROVEMENT OF SYMPTOMS REMAINS IN [place].
--- NOTE | 2020-12-25 10:40 | NUR ---
IV BOLUS COMPLETED AT THIS TIME. BP 102/60. REPORTS NO SYMPTOMS AT THIS TIME. PT INSTRUCTED TO CALL WHEN WANTING TO GET OOB. PT PLACED BACK IN SUPINE 30DEGREE ANGLE POSITION. NO OTHER NEEDS AT THIS TIME.
[2020-12-25 11:00] VITALS: BP 105/62
[2020-12-25 12:32] LABS: ANION GAP 7 (6-22 (CALC)); BUN 16 mg/dL (7-17); BUN/CREATININE RATIO 32 (12-20 (CALC)); CARBON DIOXIDE 28 mmol/l (22-30); CHLORIDE 107 mmol/l (95-108); CREATININE 0.5 mg/dL (0.5-1.0); GFR > 60 ML/MIN (>=60 (CALC)); GFR FOR AFR.AMER. > 60 ML/MIN (>=60 (CALC)); POTASSIUM 3.4 mmol/l (3.5-5.1); SODIUM 139 mmol/l (137-146)
--- NOTE | 2020-12-25 12:54 | NUR ---
DR DELEON AT BEDSIDE DISCUSSING POC
--- NOTE | 2020-12-25 13:57 | NUR ---
PT SLEEPING IN BED. REMDESIVIR INITIATED AT THIS TIME. NO NEEDS. CALL LIGHT WITHIN REACH. O2 @7L HF REMAINS.
--- NOTE | 2020-12-25 16:10 | NUR ---
PT SLEEPING IN BED. NO DISTRESS NOTED. O2 TITRATED DOWN TO 6L HF. SUSTAINING 92%. CALL LIGHT WITHIN REACH. MANUAL BP ASSESSED; 92/60, CURRENTLY ASYMPTOMATIC.
[2020-12-25 16:31] VITALS: BP 92/60
[2020-12-25 18:00] VITALS: BP 105/61
--- NOTE | 2020-12-25 19:00 | NUR ---
REPORT RECEIVED FROM Angelika BENAVIDEZ RN, CARE OF PT ASSUMED AT THIS TIME.
--- NOTE | 2020-12-25 20:08 | NUR ---
SP02 93% ON HIGH FLOW NASAL CANNULA AT 6L/MIN. RESPIRATIONS SHALLOW, REGULAR AND UNLABORED AT REST.REPORTS INFREQUENT NON-PRODUCTIVE COUGH. SOB W/ EXERTION. EDUCATION PROVIDED ON PULMONARY HYGIENE AND PRONING. SEE E-MAR FOR SAW MAKER. R-AC #20G AND L-WR #20G PATENT AND SALINE LOCKED. PT DENIES DIZZINESS AT THIS TIME. AGREES TO REPORT DIZZINESS IF IT OCCURS. COVID-19 ISOLATION PRECAUTIONS MAINTAINED. PT DENIES NEEDS AT THIS TIME. CALL VOGT WITHIN REACH, AGREES TO CALL PRN. BED LOCKED IN LOW POSITION WITH BEDRAILS UP X2.
[2020-12-26] VITALS: BP 96/55
--- NOTE | 2020-12-26 | NUR ---
PT APPEARS TO BE SLEEPING COMFORTABLY. RESPIRATIONS REGULAR AND UNLABORED. CALL VOGT REMAINS WITHIN REACH.
--- NOTE | 2020-12-26 04:47 | NUR ---
PT ASSISTED UP TO BATHROOM, SPO2 DROPS INTO THE 70S. 02 INCREASED TO 15L/MIN ON HIGH FLOW FOR A COUPLE OF MINUTES AND PT PRONED. SPO2 UP TO 97%. 02 DECREASED TO 8L/MIN VIA HIGHFLOW NC. PT MAINTAINS SPO2 93-94%. PT AGREES TO REMAIN PRONE LONG SHE IS ABLE TO TOLERATE. AGREES TO CALL FOR DYSPNEA OR ANY DISTRESS. CALL VOGT WITHIN REACH.
[2020-12-26 05:13] VITALS: BP 137/67
[2020-12-26 05:44] LABS: HEMATOCRIT 31.9 % (37.0-47.0); IMMATURE GRANULOCYTES 3.2 % (0.0-5.0); MEAN CORPUSCULAR HGB 25.7 pG CALC (26.0-32.0); MEAN CORPUSCULAR HGB CONC 31.3 g/dL CAL (32.0-36.0); NEUT# 5.97 thou/uL (2.00-7.15); RED BLOOD COUNT 3.89 mill/uL (4.20-5.60); RED CELL DISTRI WIDTH 16.3 % (11.5-15.5)
[2020-12-26 06:06] LABS: BUN 15 mg/dL (7-17); BUN/CREATININE RATIO 37 (12-20 (CALC)); CARBON DIOXIDE 29 mmol/l (22-30); CHLORIDE 106 mmol/l (95-108); CREATININE 0.4 mg/dL (0.5-1.0); GFR > 60 ML/MIN (>=60 (CALC)); GFR FOR AFR.AMER. > 60 ML/MIN (>=60 (CALC)); SODIUM 140 mmol/l (137-146)
[2020-12-26 06:21] LABS: ANION GAP 9 (6-22 (CALC)); POTASSIUM 4.1 mmol/l (3.5-5.1)
--- NOTE | 2020-12-26 09:10 | NUR ---
WHEN PT UP TO BSC SP02 QUICKLY DROPS INTO 70S AND PT'S WORK OF BREATHING INCREASES. AT REST SP02 97%. 02 TITRATED TO 10L/MIN HUMIDIFIED VIA HIGH FLOW NC. SP02 90%. PTS WORK OF BREATHING DECREASES. LAYING ON LEFT SIDE. RESPIRATIONS REGULAR AND UNLABORED. PT'S HYPOXIA WITH MILD EXERTION AND INCREASE IN SUPPLEMENTAL 02 NEEDS REPORTED TO Maty BURK APRN.
[2020-12-26 10:55] VITALS: BP 99/47
--- NOTE | 2020-12-26 12:00 | NUR ---
RECIEVED REPORT FROM MAO LU
--- NOTE | 2020-12-26 12:40 | NUR ---
DR CA AND CHARLI,ANNIEVES AT BEDSIDE
--- NOTE | 2020-12-26 13:29 | NUR ---
PT note Patient is resting in bed. She is able to sit EOB with minimal assistance of 1. She is encouraged to continue 4 second breath holds and forced expiration as well as incentive spirometer. She is also encouraged to get OOB to bedside chair as much as possible. Her AM Pac score is 15 indicating she would do well at home with HH or outpatient follow up
--- NOTE | 2020-12-26 13:48 | NUR ---
PT RESTING IN RECYLINER. PT IS A/O X3. RESPIRATIONS ARE EVEN AND UNLABORED ON 10L HIGH FLOW NC, 94%. HEART RHYTHM NORMAL WITH TELE IN PLACE. BOWEL SOUNDS ARE ACTIVE. #20G RAC LEAKING, IV REMOVED WITH CATH STILL INTACT. #20G LW FLUSHED, SITE APPEARS HEALTHY AND PATENT. SKIN INTACT. PT DENIES OF ANY PAINS OR DISCOMFORTS. PT ASSITED TO BSC AND BACK TO CHAIR.PT REQUEST TO BRUSH TEETH. SUPPLIES GIVEN.PT DENIES OF ANY ADDITIONAL NEEDS. ALL SAFETY PRECAUTIONS ARE IN PLACE WITH CALL LIGHT IN REACH. AIR/CONTACT PRECAUTIONS ARE IN PLACE. WILL CONTINUE TO MONITOR.
[2020-12-26 15:33] VITALS: BP 92/56
--- NOTE | 2020-12-26 16:43 | NUR ---
PT RESTING IN CHAIR WITH EYES CLOSED. RESPIRATIONS ARE EVEN AND UNLABORED ON 10L HIGH FLOW NC. #20G LW REMAINS IN PLACE. TELE MONITORING IN PLACE. NO SIGNS OF ANY PAINS OR DISCOMFORTS AT THIS TIME. ALL SAFETY PRECAUTIONS ARE IN PLACE WITH CALL LIGHT IN REACH. WILL CONTINUE TO MONITOR.
[2020-12-26 18:29] VITALS: BP 100/53
--- NOTE | 2020-12-26 18:29 | NUR ---
PT REQUESTING XANAX AT THIS TIME. BP COMPLETED REUSLTING IN 100/53, HR 79. MEDICATION TO BE ADMINISTERED.
[2020-12-26 19:52] VITALS: BP 104/72
--- NOTE | 2020-12-26 20:00 | NUR ---
PHYSICAL ASSESMENT COMPLETE. PT CURRENTLY DENIES PAIN OR DISCOMFORT. SCHEDULED MEDICATIONS AND PRN MEDICATION ADMINISTERED, SEE E-MAR. PT SITTING IN HER LAZY BOY CHAIR. PT DENIES ANY NEEDS AT THIS TIME. PLAN OF CARE REVIEWED, PT DENIES QUESTIONS, VERBALIZES UNDERSTANDING. ITEMS WITHIN REACH, BED LOCKED IN LOW POSITION W/ BEDRAILS UP X2. CALL VOGT WITHIN REACH, AGREES TO CALL PRN.
--- NOTE | 2020-12-26 23:58 | NUR ---
PT SITTING IN CHAIR WITH EYES CLOSED, APPEARS TO BE SLEEPING, APPEARS COMFORTABLE AND IN NO DISTRESS. RESPIRATIONS REGULAR AND UNLABORED. ITEMS REMAIN WITHIN REACH, CALL VOGT REMAINS WITHIN REACH. BED REMAINS LOCKED AND IN LOW POSITION WITH BEDRAILS UP X2. WILL CONTINUE TO MONITOR.
[2020-12-27 00:45] VITALS: BP 99/57
--- NOTE | 2020-12-27 04:14 | NUR ---
PT RESTING IN CHAIR, NO SIGNS OF DISTRESS NOTED, RESP EVEN AND UNLABORED. PT VOICES NO NEEDS OR COMPLAINTS AT THIS TIME. CALL LIGHT IN REACH, CONTINUE TO MONITOR.
[2020-12-27 04:59] VITALS: BP 101/61
--- NOTE | 2020-12-27 07:00 | NUR ---
RECIEVED REPORT FROM MAO JEREZ
[2020-12-27 07:07] LABS: BASO% 0 % (0-3); EOS% 1 % (0-8); HEMATOCRIT 33.9 % (37.0-47.0); HEMOGLOBIN 10.6 g/dl (12.0-16.0); IMMATURE GRANULOCYTES 2.7 % (0.0-5.0); LYMPH% 10 % (15-41); MEAN CELL VOLUME 82.5 fL CALC (80.0-100.0); MEAN CORPUSCULAR HGB 25.8 pG CALC (26.0-32.0); MEAN CORPUSCULAR HGB CONC 31.3 g/dL CAL (32.0-36.0); MONO% 7 % (2-13); NEUT# 7.12 thou/uL (2.00-7.15); NEUT% 79 % (42-76); PLATELET COUNT 375 thou/uL (130-400); RED BLOOD COUNT 4.11 mill/uL (4.20-5.60); RED CELL DISTRI WIDTH 16.5 % (11.5-15.5)
[2020-12-27 07:41] LABS: ALKALINE PHOSPHATASE 55 u/l (38-126); ANION GAP 10 (6-22 (CALC)); BILIRUBIN, TOTAL 0.3 mg/dL (0.0-1.4); BUN 16 mg/dL (7-17); BUN/CREATININE RATIO 32 (12-20 (CALC)); C-REACTIVE PROTEIN 5.8 mg/dL (0-0.9); CARBON DIOXIDE 31 mmol/l (22-30); CHLORIDE 102 mmol/l (95-108); CREATININE 0.5 mg/dL (0.5-1.0); GFR > 60 ML/MIN (>=60 (CALC)); GFR FOR AFR.AMER. > 60 ML/MIN (>=60 (CALC)); POTASSIUM 4.2 mmol/l (3.5-5.1); SGOT/AST 28 u/l (14-36); SODIUM 138 mmol/l (137-146); TOTAL PROTEIN 5.8 g/dL (6.3-8.2)
[2020-12-27 07:50] VITALS: BP 97/51
--- NOTE | 2020-12-27 07:50 | NUR ---
PT SITTING UP IN CHAIR UPON ENTERING ROOM. PT IS A/O X3. ASSESSMENT AND VITALS COMPLETED. BP 97/51, HR 79, O2 92% ON 10L HIGH FLOW NC. RESPIRATIONS ARE SHALLOW, PT COMPLAINS OF CONGESTION. LUNG SOUNDS ARE CLEAR.PRODUCTIVE COUGH NOTED, YELLOW THICK SPUTUM. HEART RHYTHM NORMAL WITH TELE IN PLACE. BOWEL SOUNDS ARE ACTIVE. LBM 12/26/20. PULSES STRONG. SKIN INTACT. PT COMPLAINS OF 8/10 HEADACHE, TYLENOL TO BE ADMINISTERED. PT REQUEST FOR XANAX. PT DENIES OF ANY ADDITIONAL NEEDS AT THIS TIME. PT EDUCATED ON PRONING AND I.S. PT VERBLAIZED UNDERSTADING. ALL SAFETY PRECAUTIONS ARE IN PLACE WITH CALL LIGHT IN REACH. ISOLATION PRECAUTIONS ARE IN PLACE. WILL CONTINUE TO MONITOR.
[2020-12-27 10:40] VITALS: BP 97/47
--- NOTE | 2020-12-27 11:51 | NUR ---
DR CA AND CHARLI,ANNIEVES AT BEDSIDE
--- NOTE | 2020-12-27 12:02 | NUR ---
PT SITTING UP IN CHAIR. RESPIRATIONS ARE EVEN AND UNLABORED. O2 DECREASED TO 8L HIGH FLOW NC, 91-93%. #20G LW REMAINS. TELE MONITORING IN LP[YOLANDA. PT ASSISTED TO BSC AND BACK INTO CHAIR. PT RE-EDUCATED ON I.S. PT DENIES OF ANY PAINS OR DISCOMFORTS AT THIS TIME. ALL SAFETY PRECAUTIONS ARE IN PLACE WITH CALL LIGHT IN REACH. WILL CONTINUE TO MONITOR.
--- NOTE | 2020-12-27 13:40 | NUR ---
O2 97% ON 8L HIGH FLOW. O2 DECREASED TO 6L HIGH FLOW NC, 93%. RESPIRATIONS ARE EVEN AND UNLABORED. PT STATES SHE FEELS MUCH BETTER TODAY AFTER SHOWER. ALL SAFETY PRECAUTIONS ARE IN PLACE WITH CALL LIGHT IN REACH. WILL CONTINUE TO MONITOR.
--- NOTE | 2020-12-27 13:45 | NUR ---
PHYSICAL THERAPY AT BEDSIDE
[2020-12-27 14:50] VITALS: BP 101/59
--- NOTE | 2020-12-27 16:00 | NUR ---
PT RESTING IN RECYLINER. RESPIRATIONS ARE EVEN AND UNLABORED ON 6L HIGH FLOW NC. #20G LW REMAINS IN PLACE. TELE MONITORING IN PLACE. PT REQUEST FOR ROBITUSSIN AND COUGH MEDICATION, PT TO ADMINISTERED. PT ASSISTED TO BSC AND BACK INTO CHAIR. ALL SAFETY PRECAUTIONS ARE IN PLACE WITH CALL LIGHT IN REACH. WILL CONTINUE TO MONITOR.
[2020-12-27 19:42] VITALS: BP 94/48
--- NOTE | 2020-12-27 19:50 | NUR ---
PHYSICAL ASSESMENT COMPLETE. PT CURRENTLY DENIES PAIN OR DISCOMFORT. SCHEDULED MEDICATIONS AND PRN MEDICATION ADMINISTERED, SEE E-MAR. PT DENIES ANY NEEDS AT THIS TIME. PLAN OF CARE REVIEWED, PT DENIES QUESTIONS, VERBALIZES UNDERSTANDING. ITEMS WITHIN REACH, BED LOCKED IN LOW POSITION W/ BEDRAILS UP X2. CALL VOGT WITHIN REACH, AGREES TO CALL PRN.
[2020-12-28] VITALS: BP 94/48
[2020-12-28 04:00] VITALS: BP 103/59
--- NOTE | 2020-12-28 04:16 | NUR ---
PT RESTING IN HER CHAIR, NO SIGNS OF DISTRESS NOTED, RESP EVEN AND UNLABORED. PT VOICES NO NEEDS OR COMPLAINTS AT THIS TIME. CALL LIGHT IN REACH, CONTINUE TO MONITOR.
[2020-12-28 05:48] LABS: HEMATOCRIT 32.4 % (37.0-47.0); HEMOGLOBIN 9.9 g/dl (12.0-16.0); IMMATURE GRANULOCYTES 2.3 % (0.0-5.0); MEAN CELL VOLUME 82.2 fL CALC (80.0-100.0); MEAN CORPUSCULAR HGB 25.1 pG CALC (26.0-32.0); MEAN CORPUSCULAR HGB CONC 30.6 g/dL CAL (32.0-36.0); NEUT# 5.1 thou/uL (2.00-7.15); RED BLOOD COUNT 3.94 mill/uL (4.20-5.60); RED CELL DISTRI WIDTH 16.7 % (11.5-15.5)
[2020-12-28 06:21] LABS: ALBUMIN 2.6 g/dL (3.2-5.0); ALKALINE PHOSPHATASE 68 u/l (38-126); ANION GAP 7 (6-22 (CALC)); BILIRUBIN, TOTAL 0.4 mg/dL (0.0-1.4); BUN 16 mg/dL (7-17); BUN/CREATININE RATIO 37 (12-20 (CALC)); CARBON DIOXIDE 30 mmol/l (22-30); CHLORIDE 104 mmol/l (95-108); CREATININE 0.4 mg/dL (0.5-1.0); GFR > 60 ML/MIN (>=60 (CALC)); GFR FOR AFR.AMER. > 60 ML/MIN (>=60 (CALC)); POTASSIUM 4.1 mmol/l (3.5-5.1); SODIUM 136 mmol/l (137-146); TOTAL PROTEIN 5.1 g/dL (6.3-8.2)
[2020-12-28 06:33] LABS: SGOT/AST 75 u/l (14-36)
--- NOTE | 2020-12-28 07:00 | NUR ---
RECIEVED REPORT FROM MAO JEREZ
--- NOTE | 2020-12-28 07:11 | NUR ---
12/27/20 PT note- patient is seen for help with DBE including incentive spirometer. She is able to pull 1200 ml on the IS and also worked on 4 second breath holds and forced expiration. She did attempt standing and marching in place but demonstrated orthorstatic hypotension signs (althogh I did not allow much time to check her BP as her symptoms were fairly sudden). She was advised to continue to be upright in bedside chair and continue nutrition as well as call for assistance when standing.Am Pac score is 15 indicating she would do well to progress at home possibly with HH follow up as indicated
[2020-12-28 08:22] VITALS: BP 95/50
--- NOTE | 2020-12-28 08:22 | NUR ---
PT SITTING UP IN CHAIR. PT IS A/O X3. ASSESSMENT AND VITALS COMPLETED.PT IS A/O X3 AND VERY ANXIOUS. BP 95/50, HR 102, O2 91% ON 7L HIGH FLOW NC. RESPIRATIONS ARE SHALLOW. LUNG SOUNDS ARE CLEAR. HEART RHYTHM NORMAL WITH TELE IN PLACE. BOWEL SOUNDS ARE ACTIVE.LBM 0830. #20G LW FLUSHED, SITE APPEARS HEALTHY AND PATENT. SKIN INTACT. PEDAL STRONG. PT COMPLAINS OF 7/10 HEAD ACHE. PT TO BE MEDICATED PER EMAR. PT DENIES OF ANY ADDIITONAL NEEDS AT THIS TIME. ALL SAFETY PRECAUTIONS ARE IN PLACE WITH CALL LIGHT IN REACH. ISOLATION PRECAUTIONS. WILL CONTINUE TO MONITOR.
--- NOTE | 2020-12-28 08:55 | NUR ---
XANAX AND TYELNOL ADMINISTERED. RESPIRATIONS REMAINS EVEN AND UNLABORED. PT COMPLAINS OF IT BEINFG HOT. FAN TURNED ON. PT DENIES OF ANY ADDITIONAL NEEDS. WILL CONTINUE TO MONITOR
--- NOTE | 2020-12-28 10:14 | NUR ---
TELE MONITORING DC, MONITORING REMOVED. ER NOTIFIED.
[2020-12-28 10:40] VITALS: BP 98/52
--- NOTE | 2020-12-28 11:03 | NUR ---
O2 98% ON 7L HIGH FLOW. O2 DECREASED TO 4L, O2 95%. RESPIRATIONS REMAINS EVEN AND UNLABORED.
--- NOTE | 2020-12-28 11:46 | NUR ---
PT SITTING UP IN CHAIR. RESPIRATIONS ARE EVEN AND UNLABORED WITH NO DISTRESS NOTED. 93% ON 4L NC. PT DENIES OF ANY PAINS OR DISCOMFORTS AT THIS TIME. ALL SAFETY PRECAUTIONS ARE IN PLACE WITH CALL LIGHT IN REACH. WILL CONTINUE TO MONITOR
--- NOTE | 2020-12-28 12:05 | NUR ---
DR CA AND CHARLI,ANNIEVES AT BEDSIDE
--- NOTE | 2020-12-28 12:21 | NUR ---
O2 93% ON 4L NC.O2 DECREASED TO 2L NC FOR WALK TEST. PT INSTRUCTED TO CALL IF SOB. PT VERBLAIZED UNDERSTANDING. WILL CONTINUE TO MONITOR.
--- NOTE | 2020-12-28 12:30 | NUR ---
91% ON 2L NC. O2 REMOVED PRIOR TO WALK TEST. WILL CONTINUE TO MONITOR.
--- NOTE | 2020-12-28 12:47 | NUR ---
O2 83% ON ROOM AIR. 3L NC REAPPLIED. O2 93%. DR CA NOTIFIED. WILL CONTINUE TO MONITOR.
[2020-12-28] MEDS ORDERED: VENTOLIN HFA108 MCG IN (16:29)
[2020-12-28] MEDS ORDERED: SERTRALINE25 MG PO (16:29)
[2020-12-28] MEDS ORDERED: ALPRAZOLAM0.5 M2 PO (16:29)
--- NOTE | 2020-12-28 17:33 | NUR ---
PT EDUCATED ON DC INSTRUCTIONS AND NEW MEDICATIONS. PT EDUCATED ON HOME O2. PT VERBALIZED UNDERSTANDING. #20G LW REMOVED WITH CATH STILL INTACT.
[2020-12-28] MEDS ORDERED: ASPIRIN REGULA325 M1 PO (17:48)
--- NOTE | 2020-12-28 18:19 | NUR ---
Discharge instructions given. Patient verbalizes understanding of same. Discharged in stable condition via Wheelchair to Home with staff. All belongings sent with pt. PT DC HOME IN STABLE CONDITON WITH ALL DC INSTRUCTIONS, PERSONAL BELONGINGS AND HOME O2. PT DC HOME WITH [facility]. PT SLIGHTLY AXIOUS. XANAX ADMINISTERED. TO TRANSPORT HOME.
[2020-12-28] MEDS ORDERED: MEDDOSEPAK PO (20:47)
== END 2020-12-28 18:09 | DRG 177 ==
LOC: ED 08:33 → ED-I 10:48 → ED 12:18 → MS2 12:19 → ICU 12-18 10:52 → MS2 12-23 19:00
PROVIDERS: Family Medicine; Internal Medicine; Nurse Practitioner; ADMIT Hospitalist; ATTEND Internal Medicine
PROC: XW033E5 Introduction of Remdesivir Anti-infective into Peripheral Vein, Percutaneous Approach, New Technology Group 5 (ICD-10-PCS; principal; 2020-12-16)
DX: U07.1 COVID-19 (principal); J12.82 Pneumonia due to coronavirus disease 2019; J96.01 Acute respiratory failure with hypoxia; E87.6 Hypokalemia; F41.9 Anxiety disorder, unspecified; F32.9 Major depressive disorder, single episode, unspecified; I10 Essential (primary) hypertension; Z63.4 Disappearance and death of family member
CPT/HCPCS: J1650; Q9967

== ENCOUNTER 2024-06-18 10:06 | Emergency (ER) | payer OTHER ==
[~2024-06-18] VITALS: Ht 157.5 cm; Wt 68.0 kg
[2024-06-18] VITALS (23 sets, daily range): BP systolic 122–146; BP diastolic 78–97
[~2024-06-18 10:06] MED LIST changes: +ALPRAZOLAM0.5 M2 PO; +ASPIRIN REGULA325 M1 PO; +MEDDOSEPAK PO; +SERTRALINE25 MG PO; +VENTOLIN HFA108 MCG IN; +ZITHROMAX250 MG PO
[2024-06-18] MEDS ORDERED: diazePAM 10 MG/2 ML VIAL IJ ONE (10:40)
[2024-06-18] MEDS ORDERED: SODIUM CHLORIDE 0.9% 1,000 ML IV ONE (10:40)
[2024-06-18 10:53] LABS: ALBUMIN 4.3 g/dL (3.2-5.0); ALKALINE PHOSPHATASE 56 u/l (38-126); ANION GAP 9 (6-22 (CALC)); BUN 10 mg/dL (7-17); BUN/CREATININE RATIO 17 (12-20 (CALC)); CARBON DIOXIDE 28 mmol/l (22-30); CHLORIDE 109 mmol/l (95-108); CREATININE 0.6 mg/dL (0.5-1.0); ESTIMATED GFR 112 ML/MIN (>=90 (CALC)); POTASSIUM 3.3 mmol/l (3.5-5.1); SGOT/AST 37 u/l (14-36); SODIUM 142 mmol/l (137-146); TOTAL PROTEIN 7.4 g/dL (6.3-8.2)
[2024-06-18 10:56] LABS: BASO% 0.6 % (0-3); EOS% 3.4 % (0-8); IMMATURE GRANULOCYTES 1.3 % (0.0-5.0); LYMPH% 13.1 % (15-41); MONO% 7.5 % (2-13); NEUT# 3.96 thou/uL (2.00-7.15); NEUT% 74.1 % (42-76); RED BLOOD COUNT 4.56 mill/uL (4.20-5.60); RED CELL DISTRI WIDTH 14.3 % (11.5-15.5)
[2024-06-18 11:00] LABS: HEMATOCRIT 40.3 % (37.0-47.0); HEMOGLOBIN 13.7 g/dl (12.0-16.0); MEAN CELL VOLUME 88.4 fL CALC (80.0-100.0)
[2024-06-18 11:03] LABS: D-DIMER 0.53 mg/L (0.19-0.60)
[2024-06-18 11:06] LABS: PROTHROMBIN TIME 10.9 SECONDS (9.0-12.5)
[2024-06-18] MEDS ORDERED: MORPHINE SULFATE 4 MG/ML VIAL IV ONE (14:45)
[2024-06-18] MEDS ORDERED: KETOROLAC TROMETHAMINE 30 MG/ML SDV IV ONE (14:45)
[2024-06-18] MEDS ORDERED: ONDANSETRON HCl 4 MG/2 ML SDV IV ONE (15:05)
[2024-06-18 15:21] LABS: URINE BILIRUBIN - DIPSTICK Negative (NEGATIVE); URINE BLOOD DIPSTICK Trace-intact (NEGATIVE); URINE GLUCOSE - DIPSTICK Negative (NEGATIVE); URINE KETONE 15 mg/dL (NEGATIVE); URINE LEUK ESTERASE Negative (NEGATIVE); URINE NITRITE - DIPSTICK Negative (Negative); URINE PROTEIN - DIPSTICK Negative (NEG-TRACE); URINE SPECIFIC GRAVITY 1.025; URINE UROBILINOGEN - DIPSTICK 0.2 E.U./dL (0.2)
[2024-06-18 15:27] LABS: URINE COLOR Yellow
[2024-06-18] MEDS ORDERED: POTASSIUM CHLORIDE 20 MEQ/TAB PO ONE (15:40)
[2024-06-18] MEDS ORDERED: PROTONIX40 MG PO (15:40)
[2024-06-18] MEDS ORDERED: ZOFRAN4 MG/TAB PO (15:40)
== END 2024-06-18 16:17 | disposition home or self-care (01) | DRG 313 ==
LOC: ED 10:06
PROVIDERS: Emergency Medicine
DX: R07.89 Other chest pain (principal); E87.6 Hypokalemia
CPT/HCPCS: J2405; J3360